=== PATIENT | male | born 2000 | race Two or more races ===

== ENCOUNTER 2022-05-23 08:59 | Emergency (ER) | payer OTHER ==
[~2022-05-23] VITALS: Ht 180.3 cm; Wt 127.0 kg
[2022-05-23 09:10] VITALS: BP 147/88
--- NOTE | 2022-05-23 09:15 | NUR ---
DR LOPEZ W/ PT FOR EVAL
[2022-05-23] MEDS ORDERED: PERM1LIQ MC (09:18)
--- NOTE | 2022-05-23 09:22 | NUR ---
Patient discharged to home in stable condition. Written and verbal after care instructions given. Patient verbalizes understanding of instruction.
== END 2022-05-23 09:21 | disposition home or self-care (01) ==
LOC: ER 09:11
DX: B86 Scabies (principal); Z79.899 Other long term (current) drug therapy

== ENCOUNTER 2022-10-11 11:32 | Emergency (ER) | payer OTHER ==
[~2022-10-11] VITALS: Ht 182.9 cm; Wt 108.9 kg
[~2022-10-11 11:32] MED LIST: PERM1LIQ MC
--- NOTE | 2022-10-11 12:20 | NUR ---
C/O SOB/CHEST CONGESTION X "FEW"DAYS. AAOX4. PLACED IN BED AND MONITOR. AWAITING MD ORDERS.
[2022-10-11] MEDS ORDERED: ALBUTEROL FS 2.5 MG/3 ML VIAL.NEB ONE ×2 (13:43→13:49)
[2022-10-11] MEDS ORDERED: IPRATROPIUM NEB FS 0.5 MG/2.5 ML AMPUL.NEB ONE (13:43)
[2022-10-11] MEDS ORDERED: IPRATROPIUM NEB FS 0.5 MG/2.5 ML AMPUL.NEB NEB ONE (14:00)
[2022-10-11] MEDS ORDERED: ALBUTEROL FS 2.5 MG/3 ML VIAL.NEB NEB ONE (14:00)
[2022-10-11] MEDS ORDERED: predniSONE 50 MG TABLET PO ONE (14:00)
[2022-10-11] MEDS ORDERED: predniSONE 20 MG TABLET ONE (14:20)
[2022-10-11] MEDS ORDERED: ALBU18HF2 INH (16:00)
[2022-10-11] MEDS ORDERED: PRED20TA PO (16:00)
--- NOTE | 2022-10-11 16:12 | NUR ---
Patient discharged to home in stable condition. Written and verbal after care instructions given. Patient verbalizes understanding of instruction.
[2022-10-11 16:13] VITALS: BP 153/94
== END 2022-10-11 16:13 | disposition home or self-care (01) ==
LOC: ER 11:33
DX: J45.901 Unspecified asthma with (acute) exacerbation (principal); Z79.899 Other long term (current) drug therapy
CPT/HCPCS: 99283; 71045; 94640; J7512

== ENCOUNTER 2025-02-12 22:40 | Emergency (ER) | payer OTHER ==
[~2025-02-12] VITALS: Ht 182.9 cm; Wt 145.1 kg
[~2025-02-12 22:40] MED LIST changes: +ALBU18HF2 INH; +CETI-90 PO; +DIPH25CA83 PO; +PERM60CR6 TP; +PRED20TA PO
[2025-02-12 23:53] LABS: BASOPHILS # (AUTO) 0.1 K/uL (0.0-0.2); BASOPHILS % (AUTO) 1.4 % (0.0-2.0); EOSINOPHILS # (AUTO) 0.2 K/uL (0.0-0.7); EOSINOPHILS % (AUTO) 2.3 % (0.0-6.0); HEMATOCRIT 45 % (39-51); HEMOGLOBIN 15.2 g/dL (13.5-17.5); LYMPHOCYTES # (AUTO) 1.8 K/uL (0.8-4.8); LYMPHOCYTES % (AUTO) 24.2 % (20.0-44.0); MEAN CORPUSCULAR HEMOGLOBIN 27 PG (26.0-33.0); MEAN CORPUSCULAR HGB CONC 33 g/dl (31.0-36.0); MEAN CORPUSCULAR VOLUME 80 fL (80-96); MONOCYTES # (AUTO) 0.4 K/uL (0.1-1.30); MONOCYTES % (AUTO) 5.1 % (2.0-12.0); NEUTROPHILS # (AUTO) 5.1 K/uL (1.8-8.9); PLATELET COUNT (AUTO) 297 K/uL (150-450); RED BLOOD CELL COUNT(AUTO) 5.67 MIL/uL (4.5-6.0); RED CELL DISTRIBUTION WIDTH 15.1 % (11.5-15.0); WHITE BLOOD COUNT (AUTO) 7.6 K/uL (4.3-11.0)
[2025-02-13 00:05] LABS: CARBON DIOXIDE 27 mmol/L (21-32); CHLORIDE 103 mmol/L (98-107); CREATININE 0.9 mg/dL (0.6-1.3); GLUCOSE 108 mg/dL (74-106); POTASSIUM 3.7 mmol/L (3.5-5.1); SODIUM SERUM 139 mmol/L (136-145); UREA NITROGEN, BLOOD 6 mg/dL (7-18)
[2025-02-13] MEDS: IV NS 0.9% 1,000 ML BAG IV ONE (00:21)
[2025-02-13 00:25] LABS: NT-PRO BNP 9 pg/mL (0-125)
[2025-02-13 00:43] LABS: THYROID STIMULATING HORMONE 1.7 uIU/mL (0.358-3.74)
[2025-02-13] MEDS ORDERED: LORA-258 PO (02:41)
[2025-02-13] MEDS ORDERED: AMLO-212 PO (02:41)
[2025-02-13 02:59] VITALS: BP 148/91; TEMP 98.3; O2SAT 98
== END 2025-02-13 03:00 | disposition home or self-care (01) ==
LOC: ER 22:50
DX: R00.2 Palpitations (principal); R06.02 Shortness of breath; R07.89 Other chest pain; Z79.52 Long term (current) use of systemic steroids; Z79.899 Other long term (current) drug therapy
CPT/HCPCS: 99285; 71045; 93005; 85025; 80048; 36415 ×2; 84484; 83880; 96360; 83735; 84439; 84443; J7030